=== PATIENT | female | born 1945 | race Asian ===

== ENCOUNTER 2017-09-03 00:16 | Emergency (ER) | payer MEDICARE, OTHER ==
[2017-09-03 01:23] LABS: ADD MAN DIFF? NO
[2017-09-03 01:24] LABS: BASOPHILS % 0.3 % (0.0-2.0); EOSINOPHILS # 0.3 10^3/ul (0.0-0.5); EOSINOPHILS % 2.7 % (0.0-7.0); HEMATOCRIT 43.6 % (37.0-47.0); HEMOGLOBIN 14.2 g/dl (12.0-16.0); LYMPHOCYTES # 2.9 10^3/ul (0.8-2.9); LYMPHOCYTES % 28.1 % (15.0-51.0); MEAN CORPUSCULAR HEMOGLOBIN 30.4 pg (29.0-33.0); MEAN CORPUSCULAR HGB CONC 32.6 g/dl (32.0-37.0); MEAN CORPUSCULAR VOLUME 93.4 fl (82.0-101.0); MEAN PLATELET VOLUME 10.7 fl (7.4-10.4); MONOCYTE # 0.9 10^3/ul (0.3-0.9); MONOCYTES % 8.3 % (0.0-11.0); NEUTROPHIL # 6.2 10^3/ul (1.6-7.5); NEUTROPHILS % 60.2 % (39.0-77.0); PLATELET COUNT 319 10^3/UL (140-415); RED BLOOD COUNT 4.67 10^6/ul (4.20-5.40); URINE BLOOD (Dip) POC Trace-intact (NEGATIVE); URINE GLUCOSE (Dip) POC Negative (NEGATIVE); URINE KETONES (Dip) POC Negative (NEGATIVE); URINE LEUKOCYTE EST (Dip) POC Negative (NEGATIVE); URINE NITRITE (Dip) POC Negative (NEGATIVE); URINE TOTAL PROTEIN POC 3+ (NEGATIVE)
[2017-09-03 01:24] LABS: WHITE BLOOD COUNT 10.3 10^3/ul (4.8-10.8)
[2017-09-03 01:44] LABS: ANION GAP 17 (8-16); BLOOD UREA NITROGEN 11 mg/dl (7-20); CALCIUM 9.9 mg/dl (8.4-10.2); CARBON DIOXIDE 24 mmol/L (21-31); CHLORIDE 110 mmol/L (97-110); CREATININE 0.58 mg/dl (0.44-1.00); GLUCOSE 160 mg/dl (70-220); POTASSIUM 4.1 mmol/L (3.5-5.1); SODIUM 147 mmol/L (135-144)
== END 2017-09-03 04:09 | disposition home or self-care (01) ==
LOC: E/R 00:16
DX: R20.2 Paresthesia of skin (principal); E11.9 Type 2 diabetes mellitus without complications; I10 Essential (primary) hypertension; Z79.82 Long term (current) use of aspirin; Z79.84 Long term (current) use of oral hypoglycemic drugs
CPT/HCPCS: 36415; 80048; 81003; 82962; 85025; 93005; 99284-25